=== PATIENT | male | born 1995 | race Two or more races ===

== ENCOUNTER 2022-05-11 23:49 | Emergency (ER) | payer OTHER ==
[~2022-05-11] VITALS: Ht 170.2 cm; Wt 77.3 kg
[2022-05-12] MEDS ORDERED: AZIT250T9 PO (04:54)
[2022-05-12] MEDS ORDERED: PRED20TA2 PO (04:54)
[2022-05-12] MEDS ORDERED: DexAMETHasone SOD PHOS 10MG/1ML VIAL INJ IM ONE (05:00)
[2022-05-12] MEDS ORDERED: AZITHROMYCIN 250 MG TAB PO ONE (05:00)
[2022-05-12 05:30] VITALS: BP 106/69
== END 2022-05-12 06:30 | disposition home or self-care (01) ==
LOC: ER 23:49
DX: J40 Bronchitis, not specified as acute or chronic (principal); J45.909 Unspecified asthma, uncomplicated; Z20.822 Contact with and (suspected) exposure to COVID-19
CPT/HCPCS: 36415; 71045; 87426; 87804; 93005; 99285; J1100

== ENCOUNTER 2025-01-04 00:43 | Emergency (ER) | payer MEDICAID, OTHER ==
[~2025-01-04] VITALS: Ht 170.2 cm; Wt 88.7 kg
[~2025-01-04 00:43] MED LIST: AZIT-43 PO; PRED20TA2 PO
--- NOTE | 2025-01-04 01:24 | ED.PDOC ---
Eye-HPI HPI Comments s PT PRESENTED TO ED FOR TOOTH PAIN AFTER FALLING FACE FIRST. PT STATED HE WAS DRINKING SOCIALLY WITH FRIENDS (UNKNOWN AMOUNT). (-) LOC, (+) NAUSEA, DIZZINESS. MISSING LEFT FRONT TOOTH, RIGHT FRONT TOOTH LOOSE. BLEEDING CONTROLLED. GCS-15, ALL VSS. Time Seen by MD: 00:47 Allergies: Coded Allergies: Morphine (Verified Allergy, Unknown, 05/12/22) Home Meds Active Scripts Prednisone (Prednisone) 20 Mg Tab, 20 MG PO BID for 4 Days, #8 MG Prov:LUIS PARRA MD 05/12/22 Azithromycin (Azithromycin) 250 Mg Tab, 250 MG PO DAILY, #4 CAP Prov:LUIS PARRA MD 05/12/22 Information Source: Patient Past Medical History PAST MEDICAL HISTORY: Asthma Surgical History: Denies all surgeries Family History Family History: Unknown Social History Smoker: Non-Smoker Alcohol: Denies ETOH Use Drugs: Denies Drug Use Constitutional: denies: chills, diaphoresis, fatigue, fever, malaise, sweats, weakness, others EENTM: reports: others (Dental pain); denies: blurred vision, double vision, ear bleeding, ear discharge, ear drainage, ear pain, ear ringing, eye pain, eye redness, hearing loss, mouth pain, mouth swelling, nasal discharge, nose bleeding, nose congestion, nose pain, photophobia, tearing, throat pain, throat swelling, voice changes Respiratory: denies: cough, hemoptysis, orthopnea, SOB at rest, shortness of breath, SOB with excertion, stridor, wheezing, others Cardiovascular: denies: chest pain, dizzy spells, diaphoresis, Dyspnea on exertion, edema, irregular heart beat, left arm pain, lightheadedness, palpitations, PND, syncope, others Gastrointestinal: denies: abdomen distended, abdominal pain, blood streaked bowels, constipated, diarrhea, dysphagia, difficulty swallowing, hematemesis, melena, nausea, poor appetite, poor fluid intake, rectal bleeding, rectal pain, vomiting, others Genitourinary: denies: burning, dysuria, flank pain, frequency, hematuria, incontinence, penile discharge, penile sore, pain, testicle pain, testicle swelling, urgency, others Neurological: denies: dizziness, fainting, headache, left sided numbness, left sided weakness, numbness, paresthesia, pre-existing deficit, right sided numbness, right sided weakness, seizure, speech problems, tingling, tremors, weakness, others Musculoskeletal: denies: back pain, gout, joint pain, joint swelling, muscle pain, muscle stiffness, neck pain, others Integumetry: denies: bruises, change in color, change in hair/nails, dryness, laceration, lesions, lumps, rash, wounds, others Allergic/Immunocompromised: denies: Difficulty Healing, Frequent Infections, Hives, Itching, others Hematologic/Lymphatic: denies: anemia, blood clots, easy bleeding, easy bruising, swollen glands, others Endocrine: denies: excessive hunger, excessive sweating, excessive thirst, excessive urination, flushing, intolerance to cold, intolerance to heat, unexplained weight gain, unexplained weight loss, others Psychiatric: denies: anxiety, bipolar disorder, depression, hopeless, panic disorder, schizophrenia, sleepless, suicidal, others Physical Exam General Appearance: No Apparent Distress, Normal HEENT: Normal ENT Inspection, Pharynx Normal, TMs Normal, Other (Missing front tooth left side right side upper jaw impacted front tooth no noted bleeding) Neck: Full Range of Motion, Non-Tender, Normal, Normal Inspection Respiratory: Chest Non-Tender, Lungs Clear, No Respiratory Distress, Normal Breath Sounds Cardiovascular: No Edema, No JVD, No Murmur, No Gallop, Normal Peripheral P ulses, Regular Rate/Rhythm Breast Exam: Deferred Gastrointestinal: No Organomegaly, Non Tender, No Pulsatile Mass, Normal Bowel Sounds, Soft Genitalia: Deferred Pelvic: Deferred Rectal: Deferred Extremities: Normal capillary refill, Normal inspection, Normal range of motion, Non-tender, No pedal edema Musculoskeletal : Apperance: Normal Neurologic: Alert, No Motor Deficits, Normal Affect, Normal Mood, No Sensory Deficits Cerebellar Function: Normal Reflexes: Normal Skin: Dry, Normal Color, Warm Lymphatic: No Adenopathy Was a procedure done? Was a procedure done?: No EENT DIFF Eye: N/A Ear: Dental X-Ray, Labs, Meds, VS Vital Signs Date Time Temp Pulse Resp B/P (MAP) Pulse Ox O2 Delivery O2 Flow Rate FiO2 5/25/25 01:41 98.2 103 16 106/61 (76) 97 98.2 X-Ray, Labs, Meds, VS Comment PENDING CT MAXILLOFACIAL. PATIENT UP FOR RE-EVALUATE PATIENT CALLED 3 TIMES ON A LOBBY NOT OUTSIDE AND NOT IN THE TENT PATIENT ELOPED. WE WILL SCRIPT PROPHYLACTIC ANTIBIOTICS PATIENT'S PHARMACY. Time of 1ST Reevaluation: 01:24 Reevaluation 1ST: Unchanged Patient Education/Counseling: Diagnosis, Treatment, Prognosis, Need For Follow Up Family Education/Counseling: No Family Present Departure 1 Departure Time of Disposition: 05:21 Impression: Primary Impression: Status post fall Additional Impression: Fractured tooth Qualified Codes: S02.5XXA - Fracture of tooth (traumatic), initial encounter for closed fracture Disposition: 07 LEFT AWOL/ELOPED Condition: Stable e-Prescriptions Amoxicillin & Pot Clavulanate (AUGMENTIN TABLET) 875 Mg Tb 875 MG PO BID for 7 Days, #14 TAB Prov: ABEL MERIDA 01/04/25 Discharged With: Friend Critical Care Note Critical Care Time?: No Stability Stability form required: No ABEL MERIDA January 04, 2025 01:24
[2025-01-04] MEDS ORDERED: KETOROLAC TROMETH 60MG/2ML VIAL IM ONE (01:30)
[2025-01-04 01:41] VITALS: BP 106/61; PULSE 103; RESP 16; TEMP 98.2; O2SAT 97
[2025-01-04] MEDS ORDERED: AUG875T PO (05:22)
--- NOTE | 2025-01-04 06:30 | DVH ---
HISTORY: FACIAL DENTAL TRAUMA TECHNIQUE: Nonenhanced axial images through the facial bones with coronal and sagittal MPR. Radiation Dose Information: CT Dose: CTDI volume is 66. mGy. Dose-length product is 1390 mGy*cm COMPARISON: None FINDINGS: Mandible: Unremarkable Maxilla: Periapical lucency associated with the right 1st anterior maxillary tooth. Zygomatic arches: Unremarkable Nasal bone: Unremarkable Orbits: Unremarkable Sinuses: Moderate mucosal opacification of the right maxillary sinus. Facial swelling: None IMPRESSION: Periapical lucency at the right 1st maxillary tooth. Recommend correlation with dental exam.
== END 2025-01-04 01:23 | disposition home or self-care (01) ==
LOC: ER 00:43
DX: S02.5XXA Fracture of tooth (traumatic), initial encounter for closed fracture (principal); J45.909 Unspecified asthma, uncomplicated; Z88.5 Allergy status to narcotic agent; Z79.899 Other long term (current) drug therapy; Z79.52 Long term (current) use of systemic steroids; W18.39XA Other fall on same level, initial encounter; Y93.89 Activity, other specified; Y92.89 Other specified places as the place of occurrence of the external cause; Y99.8 Other external cause status
CPT/HCPCS: 70486